=== PATIENT | female | born 1955 | race Caucasian/White ===

== ENCOUNTER 2017-06-13 09:41 | Emergency (ER) | payer BC ==
[2017-06-13 10:24] VITALS: BP 143/60
--- NOTE | 2017-06-13 10:35 | UC ---
Respiratory Complaint HPI - HPI Summary HPI Summary: 62 year old female with cough. SYMPTOMS STARTED 2 WEEKS AGO, WITH LOSS OF VOICE , OCCASIONALLY PRODUCTIVE AND GENERALLY NOT FEELING WELL, DIFFICULTY SLEEPING. TODAY HAS SOME SHORTNESS OF BREATH with cough. No fever. No recent travel. No previous PE/DVT in the past. Had seen PCP 4 days ago and given Z pack and feels worsened at this time with more cough and wheezing. No xray done at that time. No n/v/d [ End ] - History of Current Complaint Chief Complaint: UCGeneralIllness Stated Complaint: SOB,FLU LIKE SXS Time Seen by Provider: 06/13/17 10:24 Hx Obtained From: Patient Onset/Duration: Gradual Onset Pain Intensity: 8 Character: Cough: Productive Aggravating Factors: Exertion Alleviating Factors: Nothing Associated Signs And Symptoms: Positive: Wheezing, Nasal Congestion - Allergies/Home Medications Allergies/Adverse Reactions: Allergies Allergy/AdvReac Type Severity Reaction Status Date / Time amoxicillin Allergy Airway Verified 06/13/17 09:59 Obstruction Egg Derived Allergy GI Upset Verified 06/13/17 09:59 Home Medications: Home Medications Azithromyxin RAVEN (NF) [Z-Raven (Zithromax) 250 mg tabs #6] 06/13/17 [History] Ibuprofen 06/13/17 [History] PMH/Surg Hx/FS Hx/Imm Hx Previously Healthy: Yes - Surgical History Surgical History: None - Family History Known Family History: Positive: None - Social History Occupation: Employed Full-time - ex assistant/program director Alcohol Use: Occasionally Substance Use Type: None Smoking Status (MU): Never Smoked Tobacco Review of Systems Constitutional: Fatigue Respiratory: Shortness Of Breath, Cough Is Patient Immunocompromised?: No All Other Systems Reviewed And Are Negative: Yes Physical Exam Triage Information Reviewed: Yes Appearance: Well-Appearing, No Pain Distress, Well-Nourished Vital Signs: Initial Vital Signs Temp 98.8 F 06/13/17 10:14 Pulse 100 06/13/17 10:14 Resp 20 06/13/17 10:14 BP 143/60 06/13/17 10:14 Pulse Ox 100 06/13/17 10:14 Vital Signs Reviewed: Yes Eye Exam: Normal ENT Exam: Normal Dental Exam: Normal Neck exam: Normal Neck: Positive: 1 Respiratory Exam: Normal Respiratory: Positive: Chest non-tender, Lungs clear, Normal breath sounds, No respiratory distress, No accessory muscle use. Negative: Respiratory distress Cardiovascular Exam: Normal Musculoskeletal Exam: Normal Neurological Exam: Normal Psychological Exam: Normal Skin Exam: Normal UC Diagnostic Evaluation - Laboratory O2 Sat by Pulse Oximetry: 100 Re-Evaluation - Re-Evaluation First Eval Change: Unchanged Comment: (+) flu. IMPRESSION: NO EVIDENCE FOR ACTIVE CARDIOPULMONARY DISEASE. Respiratory Course/Dx - Course Course Of Treatment: Has had 4 days of Z pack and not better. Xray done today = NAD. Appears to be likely viral/flu . If SOB worsens then go to ED. She is agreeable. - Differential Dx/Diagnosis Differential Diagnosis/HQI/PQRI: Asthma, Bronchitis, Pulmonary Edema, Influenza , Lower Resp Infection, Pneumothorax, Pulmonary Embolism, Sinusitis Provider Diagnoses: influenza B Discharge - Sign-Out/Discharge Documenting (check all that apply): Discharge - Discharge Plan Condition: Good Disposition: HOME Patient Education Materials: Influenza (ED) Forms: *Work Release Referrals: No Primary Care Phys,NOPCP [Primary Care Provider] - 4 Days - Billing Disposition and Condition Condition: GOOD Disposition: HOME
[2017-06-13] MEDS ORDERED: Acetaminophen TAB* 325 MG PO ONE (10:41)
--- NOTE | 2017-06-13 11:10 | RAD ---
INDICATION: Cough. COMPARISON: There are no prior studies available for comparison. TECHNIQUE: Dual-energy PA and lateral views of the chest were obtained. FINDINGS: The heart is within normal limits in size. Mediastinal and hilar contours appear within normal limits. The lungs are clear. No pleural effusion is present. IMPRESSION: NO EVIDENCE FOR ACTIVE CARDIOPULMONARY DISEASE.
== END 2017-06-13 11:48 | disposition home or self-care (01) ==
LOC: UCCORT 09:41
DX: J10.1 Influenza due to other identified influenza virus with other respiratory manifestations (principal)
CPT/HCPCS: 71046; 87502; 99202; A9270-GY; G0463